=== PATIENT | male | born 1960 | race Two or more races ===

== ENCOUNTER 2020-04-06 12:07 | Emergency (ER) | payer MEDICAID ==
[~2020-04-06] VITALS: Ht 160 cm; Wt 70.6 kg
[2020-04-06 12:15] VITALS: BP 138/76
--- NOTE | 2020-04-06 12:37 | NUR ---
BROUGHT BACK FROM TRIAGE WITH CHIEF COMPLAINT OF SORE THROAT FOR THREE DAYS WITH FEVER. NO OTHER REPORTED SYMPTOMS.
[2020-04-06] MEDS ORDERED: DEXAMETHASONE 4 MG TABLET ONE (12:56)
[2020-04-06] MEDS ORDERED: DEXAMETHASONE 4 MG TABLET PO ONE (13:00)
--- NOTE | 2020-04-06 13:03 | NUR ---
ER DAVID PITTMAN AT BEDSIDE FOR EVAL
--- NOTE | 2020-04-06 13:53 | NUR ---
POC AND DISCHARGE INSTRUCTIONS REVIEWED.
--- NOTE | 2020-04-06 14:45 | NUR ---
CARE FOR DC PROVIDED. PT SITTING ON GURNEY. NO ACUTE DISTRESS NOTED. NO IV TO DC. REVIEWED DC INSTRUCTIONS WITH PT, UNDERSTANDING VERBALIZED. PT LEFT AMB, GAIT STEADY.
== END 2020-04-06 14:48 | disposition home or self-care (01) ==
LOC: ED 14:17
DX: J02.0 Streptococcal pharyngitis (principal); M79.10 Myalgia, unspecified site; R07.89 Other chest pain; F17.200 Nicotine dependence, unspecified, uncomplicated
CPT/HCPCS: 71045; 99283